=== PATIENT | male | born 1955 | race Caucasian/White ===

== ENCOUNTER 2019-04-29 14:45 | Inpatient (IN) | payer BC ==
[~2019-04-29] VITALS: Ht 177.8 cm; Wt 79.5 kg
[2019-04-29] MEDS ORDERED: metoprolol tartrate 1mg/ml inj IV ONE (15:15)
[2019-04-29 15:29] LABS: BASOPHILS % (AUTO) 0.6 % (0-1); EOSINOPHILS # (AUTO) 0.2 X10'3 (0-0.9); EOSINOPHILS % (AUTO) 2.8 % (0-6); HEMATOCRIT 42.6 % (42.0-52.0); LYMPHOCYTES # (AUTO) 0.8 X10'3 (1.1-4.8); LYMPHOCYTES % (AUTO) 12.3 % (21-51); MEAN CORPUSCULAR HEMOGLOBIN 31.9 PG (27.0-31.0); MEAN CORPUSCULAR HGB CONC 35.3 g/dL (33.0-36.5); MEAN CORPUSCULAR VOLUME 90.5 FL (78-98); MONOCYTES # (AUTO) 0.8 X10'3 (0-0.9); NEUTROPHILS # (AUTO) 4.7 X10'3 (1.8-7.7); NEUTROPHILS % (AUTO) 72.3 % (42-75); PLATELET COUNT 314 X10'3 (140-440); RED BLOOD COUNT 4.71 X10'6 (4.70-6.10); RED CELL DISTRIBUTION WIDTH 13.6 % (11.5-14.5); WHITE BLOOD COUNT 6.5 X10'3 (4.5-11.0)
[2019-04-29 15:48] LABS: ALANINE AMINOTRANSFERASE 34 U/L (12-78); ALBUMIN 4.3 G/DL (3.4-5.0); ALBUMIN/GLOBULIN RATIO 1.2 (1.1-1.5); ALKALINE PHOSPHATASE 65 IU/L (46-116); ANION GAP 8 (8-16); ASPARTATE AMINO TRANSFERASE 28 U/L (10-37); BILIRUBIN,TOTAL 0.4 MG/DL (0.1-1.0); BLOOD UREA NITROGEN 14 MG/DL (7-18); BUN/CREATININE RATIO 16.9 (5.4-32.0); CALCIUM 9.2 MG/DL (8.5-10.1); CHLORIDE 96 MMOL/L (99-107); CREATININE 0.83 MG/DL (0.60-1.10); GLUCOSE 110 MG/DL (70-104); POTASSIUM 3.6 MMOL/L (3.5-5.1); SODIUM 130 MMOL/L (135-145); TOTAL CARBON DIOXIDE 26.5 MMOL/L (24-32); eGFR > 90 ML/MIN
[2019-04-29 15:53] LABS: PARTIAL THROMBOPLASTIN TIME 28 SECONDS (22-32)
[2019-04-29] MEDS ORDERED: cloNIDine 0.1 mg tablet PO ONE (16:10)
[2019-04-29] MEDS ORDERED: hydrALAZINE 20mg/ml inj. IV ONE (16:45)
[2019-04-29] MEDS ORDERED: NO HOME MEDS (17:08)
[2019-04-29] MEDS ORDERED: magnesium Cl slow-release 64mg tablet PO PRN (17:10)
[2019-04-29] MEDS ORDERED: acetaminophen 325mg tablet PO PRN ×2 (17:10)
[2019-04-29] MEDS ORDERED: potassium CL 10mEq/100ml bag 100 ML IV PRN (17:10)
[2019-04-29] MEDS ORDERED: ondansetron/PF 4mg/2ml inj IV PRN (17:10)
[2019-04-29] MEDS ORDERED: magnesium hydroxide 30ml (MOM) UD suspension PO PRN (17:10)
[2019-04-29] MEDS ORDERED: potassium Cl 40MEQ/NS 500ml 500 ML IV PRN (17:10)
[2019-04-29] MEDS ORDERED: nitroGLYCERIN 0.4mg SUBLingual tab SL PRN (17:10)
[2019-04-29] MEDS ORDERED: magnesium 4gm in 100ml NS 100 ML IV PRN (17:10)
[2019-04-29] MEDS ORDERED: potassium Cl 20 mEq SR tablet PO PRN ×2 (17:10)
[2019-04-29] MEDS ORDERED: magnesium 2GM in 50ml NS 50 ML IV PRN (17:10)
[2019-04-29] MEDS ORDERED: mag hydrox/Alum hydrox/simeth 30ml oral suspension PO PRN (17:10)
--- NOTE | 2019-04-29 18:11 | NUR ---
DR. MUNOZ INFORMED ABOUT PT'S SUDDEN WEAKNESS AND NUMBNESS TO RIGHT SIDE OF BODY. LIAN MORRIS DID ORDER A HEAD CT.
[2019-04-29] MEDS: lisinopril 10 MG tablet PO SCH (18:55)
[2019-04-29] MEDS: chlorthalidone 25mg tablet PO SCH (19:01)
--- NOTE | 2019-04-29 19:05 | NUR ---
DR DE JESUS CAME BY TO SEE THE PT EXPLAINED THE PLAN OF CARE.WILL CONT TO MONITOR,BP MEDS GIVEN TO THE PT.
[2019-04-29 22:00] VITALS: BP 184/103
--- NOTE | 2019-04-29 22:00 | NUR ---
patient came up to floor and assessment completed. VS taken
--- NOTE | 2019-04-29 22:30 | NUR ---
VS 184/112 on R arm, 184/103 on Left. IV Hydralazine administered. will recheck in 2 hours.
[2019-04-29] MEDS: hydrALAZINE 20mg/ml inj. IV PRN (22:43)
[2019-04-30] VITALS (7 sets, daily range): BP systolic 73–195; BP diastolic 39–108
--- NOTE | 2019-04-30 00:30 | NUR ---
VS taken again. 89/53 on L and 73/39 on R. Re took manually and got close to same reading. Eliana paged hospitalist to notify. Awaiting his call back.
--- NOTE | 2019-04-30 00:59 | NUR ---
Bolus of 250mL NS per protocol.
--- NOTE | 2019-04-30 01:27 | NUR ---
Dr. Mae called and I informed him of low BP. He stated to bolus up to 500mL and continue to monitor. Will let him know if there are any changes.
[2019-04-30 03:23] LABS: ALBUMIN 3.7 G/DL (3.4-5.0); ANION GAP 8 (8-16); BLOOD UREA NITROGEN 14 MG/DL (7-18); BUN/CREATININE RATIO 13.7 (5.4-32.0); CHLORIDE 96 MMOL/L (99-107); CREATININE 1.02 MG/DL (0.60-1.10); GLUCOSE 111 MG/DL (70-104); POTASSIUM 3.4 MMOL/L (3.5-5.1); SODIUM 130 MMOL/L (135-145); TOTAL CARBON DIOXIDE 25.7 MMOL/L (24-32); eGFR 74 ML/MIN
--- NOTE | 2019-04-30 06:29 | NUR ---
Problems reprioritized. Patient report given, questions answered & plan of care reviewed with THAIS Flynn.
[2019-04-30] MEDS: enoxaparin 40mg/0.4ml syringe SQ SCH ×2 (08:00→08:02)
[2019-04-30] MEDS: chlorthalidone 25mg tablet PO SCH ×2 (08:00→08:01)
[2019-04-30] MEDS: lisinopril 10 MG tablet PO SCH ×2 (08:00→08:02)
[2019-04-30] MEDS: K and/or MAG REPLACEMENT MC SCH (08:00)
[2019-04-30] MEDS ORDERED: CHLO25TA11 PO (09:57)
[2019-04-30] MEDS ORDERED: LISI-604 PO (09:57)
[2019-04-30] MEDS ORDERED: ASPI81TA52 PO (09:57)
[2019-04-30] MEDS: hyDRALAzine 10mg tablet PO PRN ×2 (11:46→23:14)
[2019-04-30] MEDS: hydrALAZINE 20mg/ml inj. IV PRN (15:18)
[2019-05-01 02:00] VITALS: BP 100/66
[2019-05-01 05:24] LABS: BASOPHILS % (AUTO) 0.3 % (0-1); EOSINOPHILS # (AUTO) 0.3 X10'3 (0-0.9); EOSINOPHILS % (AUTO) 3.1 % (0-6); HEMATOCRIT 46.7 % (42.0-52.0); HEMOGLOBIN 16.2 g/dl (14.0-17.9); LYMPHOCYTES # (AUTO) 1.1 X10'3 (1.1-4.8); LYMPHOCYTES % (AUTO) 13.5 % (21-51); MEAN CORPUSCULAR HEMOGLOBIN 31.3 PG (27.0-31.0); MEAN CORPUSCULAR HGB CONC 34.7 g/dL (33.0-36.5); MEAN CORPUSCULAR VOLUME 90.2 FL (78-98); MEAN PLATELET VOLUME 7.2 FL (7.4-10.4); MONOCYTES # (AUTO) 1.1 X10'3 (0-0.9); MONOCYTES % (AUTO) 13.5 % (2-12); NEUTROPHILS # (AUTO) 5.9 X10'3 (1.8-7.7); NEUTROPHILS % (AUTO) 69.6 % (42-75); PLATELET COUNT 328 X10'3 (140-440); RED BLOOD COUNT 5.18 X10'6 (4.70-6.10); RED CELL DISTRIBUTION WIDTH 13.5 % (11.5-14.5); WHITE BLOOD COUNT 8.5 X10'3 (4.5-11.0)
[2019-05-01 05:52] LABS: ANION GAP 10 (8-16); BLOOD UREA NITROGEN 15 MG/DL (7-18); BUN/CREATININE RATIO 12.1 (5.4-32.0); CALCIUM 9.5 MG/DL (8.5-10.1); CHLORIDE 93 MMOL/L (99-107); CHOL/HDL RATIO 2.1 (0.00-4.99); CHOLESTEROL 197 MG/DL (0-200); CREATININE 1.24 MG/DL (0.60-1.10); GLUCOSE 100 MG/DL (70-104); HDL CHOLESTEROL 94 MG/DL (35-60); LDL CHOLESTEROL 92 MG/DL (50-100); POTASSIUM 3.6 MMOL/L (3.5-5.1); SODIUM 130 MMOL/L (135-145); TOTAL CARBON DIOXIDE 26.9 MMOL/L (24-32); TRIGLYCERIDES 82 MG/DL (20-135); eGFR 59 ML/MIN
[2019-05-01 06:00] VITALS: BP 168/104
--- NOTE | 2019-05-01 06:40 | NUR ---
Patient in room [facility]009. I have received report from Stephanie PLASCENCIA and had the opportunity to ask questions and assume patient care.
[2019-05-01 07:39] VITALS: BP 210/117
[2019-05-01] MEDS: lisinopril 10 MG tablet PO SCH (07:39)
[2019-05-01] MEDS: chlorthalidone 25mg tablet PO SCH (07:39)
[2019-05-01] MEDS: hyDRALAzine 10mg tablet PO PRN (07:40)
[2019-05-01] MEDS: enoxaparin 40mg/0.4ml syringe SQ SCH (07:40)
[2019-05-01] MEDS: K and/or MAG REPLACEMENT MC SCH (08:00)
[2019-05-01 09:00] VITALS: BP 127/98
[2019-05-01 10:00] VITALS: BP 127/98
[2019-05-01] MEDS ORDERED: LISI10TA4 PO (10:10)
--- NOTE | 2019-05-01 12:42 | NUR ---
DC meds have changed, pt is going to drive himself home, pt wished to eat lunch before discharge
--- NOTE | 2019-05-01 15:34 | NUR ---
Reviewed discharge instructions with pt. Pt verbalized understanding, however continued to ask questions re medications. Pt states he feels safe to drive himself to the pharmacy and home as he drove himself here to the ED when his BP was elevated. Pt's BP upon DC was 155/99 HR 78. Pt is asymptomatic. Pt did state he had a pocket knife, charge nurse located the knife and returned it to pt prior to wheeling him downstairs. Pt is in good spirits and does not have c/o pain or discomfort at this time. Pt states he will be returning to work tomorrow.
== END 2019-05-01 15:30 | disposition home or self-care (01) | DRG 305 ==
LOC: ER 14:45 → ORTHO 4S 22:29 → CMPBEDREQ 22:38 → OBSVTOIN 04-30 00:30
PROVIDERS: ADMIT Hospitalist; ATTEND Hospitalist
DX: I16.0 Hypertensive urgency (principal); E87.1 Hypo-osmolality and hyponatremia; I11.0 Hypertensive heart disease with heart failure; F12.90 Cannabis use, unspecified, uncomplicated; I50.9 Heart failure, unspecified; Z85.819 Personal history of malignant neoplasm of unspecified site of lip, oral cavity, and pharynx; Z88.1 Allergy status to other antibiotic agents; Z72.89 Other problems related to lifestyle; Z71.41 Alcohol abuse counseling and surveillance of alcoholic
CPT/HCPCS: 36415; 70450; 71045; 80048; 80053; 80061; 83735; 83880; 84484; 85025; 85610; 85730; 87070; 93306; 96374; 96375; 99285; G0378; J0360; J1650; J3490